=== PATIENT | male | born 1995 | race Caucasian/White ===

== ENCOUNTER 2018-05-20 18:41 | Emergency (ER) | payer BC ==
[~2018-05-20] VITALS: Ht 180.3 cm; Wt 104.5 kg
[~2018-05-20 18:41] MED LIST: AMOXICILLIN 50500 MG PO; AUGMENTIN 250150 ML PO; IBU-4400 MG PO; NO HOME MEDICATIONS; NORCO 325 MG-51 TAB PO; PROZAC 20MG20 MG PO
[2018-05-20 18:48] VITALS: TEMP 98.6
[2018-05-20 21:25] VITALS: BP 132/81; PULSE 72
== END 2018-05-20 21:27 | disposition home or self-care (01) ==
LOC: COL.ER 18:41
DX: H54.7 Unspecified visual loss (principal)
CPT/HCPCS: J7030

== ENCOUNTER 2019-12-19 21:38 | Emergency (ER) | payer BC ==
[~2019-12-19] VITALS: Ht 180.3 cm; Wt 113.6 kg
[2019-12-19 21:43] VITALS: BP 138/81; TEMP 97.3
[2019-12-19] MEDS ORDERED: ALLEGRA ALLERG180 MG PO (21:58)
[2019-12-19 23:06] VITALS: PULSE 85
== END 2019-12-19 23:06 | disposition home or self-care (01) ==
LOC: COL.ER 21:38
DX: S83.92XA Sprain of unspecified site of left knee, initial encounter (principal); Z88.6 Allergy status to analgesic agent; F17.220 Nicotine dependence, chewing tobacco, uncomplicated; W54.1XXA Struck by dog, initial encounter; Y92.009 Unspecified place in unspecified non-institutional (private) residence as the place of occurrence of the external cause
CPT/HCPCS: 31289; L1830; L1846

== ENCOUNTER 2021-11-12 13:25 | Emergency (ER) | payer BC ==
[~2021-11-12] VITALS: Ht 182.9 cm; Wt 129.5 kg
[~2021-11-12 13:25] MED LIST changes: +ALLEGRA ALLERG180 MG PO
[2021-11-12 13:31] VITALS: TEMP 97.7
[2021-11-12 14:26] LABS: BASO % 0.4 % (0.0-2.0); EOS # 0.2 K/mm3 (0.0-0.7); EOS % 2.3 % (0.0-4.0); GRAN # 5.2 K/mm3 (1.4-6.5); GRAN % 64.8 % (42.2-75.2); HEMATOCRIT 44.7 % (42.0-52.0); HEMOGLOBIN 14.3 g/dl (13.5-18.0); LYMPH # 1.9 K/mm3 (1.2-3.4); LYMPH % 23.2 % (20.0-51.0); MEAN CELL VOLUME 82 fl (80.0-100.0); MEAN CORPUSCULAR HEMOGLOBIN 26 pg (27-31); MEAN CORPUSCULAR HGB CONC 32 g/dl (33.0-37.0); MEAN PLATELET VOLUME 10.4 fl (7.4-10.4); MONO # 0.7 K/mm3 (0.1-0.6); MONO % 8.4 % (1.7-9.3); PLATELET COUNT 272 K/mm3 (130-400); RED BLOOD COUNT 5.47 M/mm3 (4.20-5.60); REDCELL DISTRIBUTION WIDTH-CV 12.5 % (11.5-14.5)
[2021-11-12 14:50] LABS: ALBUMIN 3.8 gm/dL (3.5-5.0); BILIRUBIN,TOTAL 0.3 mg/dL (0.2-1.2); CALCIUM 9.4 mg/dL (8.4-10.2); CREATININE, serum 0.92 mg/dL (0.72-1.25); POTASSIUM 4.3 mmol/L (3.5-4.5); TOTAL PROTEIN 7.9 gm/dL (6.2-8.1)
[2021-11-12 14:55] LABS: TROPONIN-I 0.01 ng/mL (0.00-0.033)
[2021-11-12 15:30] VITALS: BP 140/90; PULSE 77
== END 2021-11-12 15:31 | disposition home or self-care (01) ==
LOC: COL.ER 13:25
PROVIDERS: Personal Emergency Response Attendant
DX: R07.89 Other chest pain (principal); Z28.310 Unvaccinated for COVID-19